=== PATIENT | male | born 1975 | race Caucasian/White ===

== ENCOUNTER → 2016-02-21 | Day surgery (SDC) | payer OTHER ==
[2016-02-18 09:19] LABS: BASO % 0.5 % (0.0-1.0); EOS # 0.3 10*3/uL (0.0-0.4); EOS % 4.2 % (1.0-4.0); HEMATOCRIT 45.5 % (42.0-52.0); HEMOGLOBIN 15.1 g/dl (14.0-18.0); IG # 0.1 10*3/uL (0.0-0.1); LYMPH # 1.9 10*3/uL (1.3-4.4); LYMPH % 24.6 % (27.0-41.0); MEAN CELL VOLUME 90.8 fl (80.0-94.0); MEAN CORPUSCULAR HGB 30.1 pg (27.0-31.0); MEAN CORPUSCULAR HGB CONC 33.2 g/dl (33.0-37.0); MEAN PLATELET VOLUME 11.9 fl (9.6-12.3); MONO # 0.6 10*3/uL (0.1-1.0); MONO % 7.9 % (3.0-9.0); NEUT # 4.8 10*3/uL (2.3-7.9); NEUT % 61.9 % (47.0-73.0); PLATELET COUNT AUTOMATED 174 10*3/uL (130-400); RED BLOOD COUNT 5.01 10*6/uL (4.50-5.90); WHITE BLOOD COUNT 7.8 10*3/uL (4.8-10.8)
[2016-02-18 09:21] LABS: BILIRUBIN NEGATIVE (NEGATIVE); BLOOD NEGATIVE (NEGATIVE); CLARITY CLEAR (CLEAR); COLOR YELLOW (YELLOW); GLUCOSE NEGATIVE (NEGATIVE); KETONE NEGATIVE (NEGATIVE); LEUKO ESTERASE NEGATIVE (NEGATIVE); NITRITE NEGATIVE (NEGATIVE); PROTEIN NEGATIVE (NEGATIVE); UROBILINOGEN 0.2 E.U./dl (0.2-1.0)
[2016-02-18 09:44] LABS: RBC 0-2 rbc/hpf (0-2); WBC 0-2 wbc/hpf (0-5)
[2016-02-18 09:53] LABS: BUN 12 mg/dl (7-24); CARBON DIOXIDE 31 mmol/L (21-32); CHLORIDE 102 mmol/L (98-107); EST GLOM FILT AFRICAN AMERICAN > 60 ml/min; GLUCOSE 134 mg/dL (65-99); POTASSIUM 3.9 mmol/L (3.5-5.1); SODIUM 141 mmol/L (136-145)
[2016-02-18 09:56] LABS: PROTHROMBIN TIME 10.2 SECONDS (9.0-12.4)
[~2016-02-21] VITALS: Ht 175.2 cm; Wt 113.4 kg
[2016-02-21] VITALS (7 sets, daily range): BP systolic 86–137; BP diastolic 44–105
[~2016-02-21] MED LIST: NORCO 5-325 TA1 EACH PO; ZYRTEC10 M3 PO
--- NOTE | ~2016-02-21 | O ---
[place], [place] OPERATIVE NOTE NAME: [id number] UNIT #: [id number] ROOM: DOCTOR: KATIA DAO MD BIRTHDATE: [birth year] DOS: 02/21/2016 PREOPERATIVE DIAGNOSIS: Incarcerated umbilical hernia. POSTOPERATIVE DIAGNOSIS: Incarcerated umbilical hernia. PROCEDURE: Repair of incarcerated umbilical hernia with mesh (large Ventralex, 8 cm), partial omentectomy. SURGEON: Katia Dao MD CONTEMPORARY OR MODERN DANCER: MS3. ANESTHESIA: General anesthesia with endotracheal intubation. INDICATIONS: This is a 40-year-old gentleman who comes in today for repair of incarcerated umbilical hernia. The patient has had the hernia for many years and it has gradually grown in size and is causing him discomfort. The procedure and its complications were explained to the patient in detail. Complications that were discussed included but were not limited to bleeding, infection, hematoma/seroma/abscess formation, prolonged postoperative pain, recurrence and damage to underlying vital structures. He agreed to proceed. DESCRIPTION OF PROCEDURE: After identifying the patient, the patient was brought to the operating suite and laid in the supine position. After induction of general anesthesia, timeout procedure was called and the parts were then painted and draped in the usual sterile fashion. An infraumbilical circumferential incision was marked in the lower half and an incision was then made with the help of electrocautery. The skin and the subcutaneous tissue were incised. The sac was incised and was found to contain omentum. Adhesions between the sac and the omentum were taken down with the help of electrocautery and in order to better delineate the fascial defect, partial omentectomy was performed with the help of electrocautery and the specimen was sent for histopathological diagnosis. Thereafter, part of the mesh was also excised and sent for histopathological diagnosis. After adequate fascial definition was obtained, 8 cm Ventralex mesh was brought in and placed in the sublay fashion and sutured to the overlying fascia with the help of 0 PDS in an interrupted fashion. The fascial defect itself was then approximated with the help of 0 PDS in a [id number] interrupted fashion. Thereafter, saline was used for irrigation and the excess skin was excised and the subcutaneous tissue was approximated with the help of 3-0 Vicryl in an interrupted fashion and the skin edges were then approximated with the help of 4-0 Vicryl in a subcuticular running fashion. Dressing was given. The patient tolerated the procedure well and was taken to the recovery room in stable fashion. There were no complications. Dr. Katia Dao, the attending surgeon, was present throughout the operating case. [place], [place] OPERATIVE NOTE NAME: MATEO MCGOVERN UNIT #: [id number] ROOM: DOCTOR: KATIA DAO MD BIRTHDATE: [birth year] Katia Dao MD CM:OPRECORD:OPERATIVE NOTE [id number] KATIA DAO MD 02/21/16 1054 interface
== END | disposition home or self-care (01) ==
LOC: SDC 02-15 09:30
PROVIDERS: Surgery
DX: K42.0 Umbilical hernia with obstruction, without gangrene (principal); K66.0 Peritoneal adhesions (postprocedural) (postinfection); Z87.01 Personal history of pneumonia (recurrent); Z82.49 Family history of ischemic heart disease and other diseases of the circulatory system; Z80.9 Family history of malignant neoplasm, unspecified; F17.210 Nicotine dependence, cigarettes, uncomplicated; Z87.828 Personal history of other (healed) physical injury and trauma

== ENCOUNTER 2024-03-11 18:13 | Emergency (ER) | payer OTHER ==
[~2024-03-11] VITALS: Ht 175.2 cm; Wt 95.3 kg
[2024-03-11] MEDS ORDERED: Acetaminophen/Oxycodone 5 MG/325 MG TABLET PO ONE (18:25)
[2024-03-11] MEDS ORDERED: CYCLOBENZAPRINE10 MG PO (18:55)
[2024-03-11] MEDS ORDERED: MELOXICAM15 MG PO (18:55)
== END 2024-03-11 19:11 | disposition home or self-care (01) ==
LOC: ED 18:13
DX: M62.830 Muscle spasm of back (principal); M54.50 Low back pain, unspecified; Z79.899 Other long term (current) drug therapy; Z98.890 Other specified postprocedural states; X50.0XXA Overexertion from strenuous movement or load, initial encounter; Y93.89 Activity, other specified; Y92.238 Other place in hospital as the place of occurrence of the external cause; Y99.0 Civilian activity done for income or pay